=== PATIENT | female | born 1985 | race Caucasian/White ===

== ENCOUNTER → 2018-06-23 | Outpatient (CLI) | payer OTHER ==
--- NOTE | 2018-06-23 22:55 | MR ---
EXAMINATION TYPE: MR lumbar spine wo/w con DATE OF EXAM: 06/23/2018 COMPARISON: Prior MRI lumbar spine November 18, 2012 HISTORY: Severe Low Back Pain, lt leg numbness, hx surgery 2012 TECHNIQUE: Multiplanar, multisequence images of the lumbar spine is performed without and with IV contrast, util izing 7.5 mL intravenous Gadavist FINDINGS: Sagittal images of the lumbar spine show vertebral body heights and alignment to remaining satisfactory. Small Schmorl node inferior posterior L1 endplate remains present. The intervertebral d iscs redemonstrate normal heights and hydration. This is posterior disc herniations are noted on sag ittal images. The conus medullaris remains stable in position and signal ending L1-L2 disc space leve l. The bone marrow signal intensity is within normal limits. No suspicious postcontrast enhancement is seen. No significant spurring is present. Axial images show the T12-L1 level to remain within normal limits. Axial images at L1-L2 level redemonstrated tiny central disc protrusion minimally effacing anterior t hecal sac and axial images 26, bilateral neural foramina are patent. No significant change from prior . Axial images at L2-L3 and L3-L4 levels appear within normal limits on current study. Axial images at L4-L5 level demonstrates mild facet degenerative changes bilaterally with suspected s light interval progression. There is broad-based posterior disc protrusion or spinal canal is preserv ed to bilateral neural foramina are patent. Axial images at L5-S1 level show [id number] facet degenerative changes bilaterally. No signific ant disc herniation or spinal canal effacement is seen. Bilateral neural foramina are patent. No sign ificant spondylolisthesis is noted. IMPRESSION: Bilateral pars defect L5 level are less well-seen on current study. No spondylolisthesis is present. Some increasing facet arthropathy L4-L5 level is seen otherwise no significant interval c hange is noted.
== END ==
LOC: RADMRIMAIN 16:25
PROVIDERS: ATTEND Internal Medicine
DX: M46.96 Unspecified inflammatory spondylopathy, lumbar region (principal); M48.8X6 Other specified spondylopathies, lumbar region
CPT/HCPCS: 72158; A9585